=== PATIENT | female | born 1980 | race African-American/Black ===

== ENCOUNTER 2017-09-11 20:05 | Emergency (ER) | payer MEDICAID ==
[~2017-09-11] VITALS: Ht 165.1 cm; Wt 63.0 kg
[2017-09-12] MEDS ORDERED: HYDROCODONE/ACETAMINOPHEN 5/325MG TABLET PO ONE (00:15)
[2017-09-12] MEDS ORDERED: KETOROLAC 60MG/2ML VIAL IM ONE (00:15)
[2017-09-12] MEDS ORDERED: BACITRACIN ZINC OINT UDPKT TOP ONE (01:00)
[2017-09-12 01:09] LABS: HCG SCREEN NEGATIVE
[2017-09-12 01:24] VITALS: BP 128/88
== END 2017-09-12 01:50 | disposition home or self-care (01) ==
LOC: ER 20:05
DX: S60.00XA Contusion of unspecified finger without damage to nail, initial encounter (principal); S60.221A Contusion of right hand, initial encounter; S67.21XA Crushing injury of right hand, initial encounter; W23.0XXA Caught, crushed, jammed, or pinched between moving objects, initial encounter; Y93.89 Activity, other specified; Y99.8 Other external cause status; Y92.89 Other specified places as the place of occurrence of the external cause
CPT/HCPCS: 73130; 84703; 96372; 99285; J1885; Z7610